=== PATIENT | female | born 1935 | race Caucasian/White ===

== ENCOUNTER 2017-01-22 18:30 | Inpatient (IN) | payer MEDICARE, BC ==
--- NOTE | ~2017-01-22 | HP ---
History And Physical [id number] [place]. [address] NAME: MARIANO ELLIOTT : 37 STATUS : ADM IN [facility]#: [id number] AGE: 81 ADM/REG DATE : 01/23/17 MR#: [id number] REPORT SERV DATE: 01/23/17 DICTATED BY: PASTORA MAYS DATE: 01/23/17 REPORT STATUS : Draft TRANSCRIBED BY: HAYDEN DATE: 01/23/17 DATE OF ADMISSION: 01/23/2017 HISTORY OF PRESENT ILLNESS: The patient is an 81-year-old female, who presented to the emergency department with complaints of back and chest pain. Onset was in the late afternoon or early evening of 01/22/2017. The patient described a constant discomfort in the chest, radiating to the intrascapular region of the back. No associated dyspnea or nausea. The patient had EKG demonstrating anterolateral ST-segment depression. She was treated with medical therapy with resolution of her chest pain. She reports in the early hours this morning having some recurrent chest pain which was treated with sublingual nitroglycerin, morphine with resolution of pain. The patient currently chest pain free and back pain free. Initial troponin 0.34. Subsequent troponin this morning 14.1. PAST MEDICAL HISTORY: 1. Coronary artery disease. a. Original five-vessel coronary artery bypass grafting in 1994. b. Redo coronary artery bypass grafting, 02/21/2016, with SVG-LAD and SVG- PDA. 2. Valvular heart disease, status post mitral and tricuspid valve repairs with ring annuloplasties to both, 02/21/2016. 3. Paroxysmal atrial fibrillation, status post surgical Maze, 02/21/2016. 4. Chronic systolic congestive heart failure/ischemic cardiomyopathy - ejection fraction 40% by most recent echo, 05/06/2016. 5. Sick sinus syndrome, status post [employer] dual-chamber permanent pacemaker implantation. 6. Hyperlipidemia. 7. Chronic anticoagulation for stroke prophylaxis secondary to paroxysmal atrial fibrillation history. 8. GERD. 9. Anxiety disorder. ALLERGIES: SULFA WITH ANAPHYLAXIS, PRURITUS AND RASH. FAMILY HISTORY: Noncontributory. SOCIAL HISTORY: Denies tobacco, alcohol, or illicit drug use. REVIEW OF SYSTEMS: Negative for all organ systems except per the history of present illness. PHYSICAL EXAMINATION: VITALS: Blood pressure 96/50, pulse 83, respirations 16 and unlabored, saturating 95% on room air. Weight 65 kg. GENERAL: Elderly female, in no acute distress. History And Physical [address] [address] NAME: MARIANO ELLIOTT : 37 STATUS : ADM IN PAT#: [id number] AGE: 81 ADM/REG DATE : 01/23/17 MR#: [id number] REPORT SERV DATE: 01/23/17 DICTATED BY: PASTORA MAYS DATE: 01/23/17 REPORT STATUS : Draft TRANSCRIBED BY: HAYDEN DATE: 01/23/17 CHEST: Well-healed sternotomy scar is noted. The sternum is stable. HEENT: Normal. NECK: Supple, no JVD or bruit, normal carotid upstroke bilaterally, no thyromegaly. LUNGS: Clear to auscultation and percussion. No wheezes, rales or rhonchi. No use of accessory muscles. CARDIOLOGY: Regular rhythm, normal S1, S2, no thrill, no murmur, rubs or gallops, normal PMI. ABDOMEN: Bowel sounds positive, soft, nontender, and nondistended. No masses or aortic bruits. No hepatosplenomegaly or hepatojugular reflux. EXTREMITIES: No edema. Normal pulses. No clubbing or cyanosis. SKIN: Warm and dry, no significant rash. NEUROLOGIC: Alert and oriented x 3. Appropriate mood. EKG: EKG on admission, sinus tachycardia with anterolateral ST-segment depression. EKG this morning, intermittent atrial paced rhythm with premature atrial contractions, significant anterolateral ST depression remains. IMPRESSION: 1. Non-Q-wave myocardial infarction - the patient with recurrent more recent chest pain in the early hours this morning. Nitroglycerin paste added to the patient's medical regimen. Already on intravenous heparin. Based upon continued significant ST depression by EKG, we will plan for cardiac catheterization today. The laborer ammunition assembly will be activated for urgent catheterization. Should the patient develop any recurrent chest pain, we will upgrade to an emergent catheterization with immediate call in. 2. Atrial fibrillation - in sinus rhythm by EKGs - apixaban being held, currently on heparin drip. 3. Hyperlipidemia - continue statin. 4. Permanent pacemaker/sick sinus syndrome - asymptomatic of same. Intermittent atrial pacing noted on EKG. Further plans based upon findings at catheterization. [facility] Stefany Mays M.D. / [id number] CC: Alonzo Arvizu M.D.
[~2017-01-22 18:30] MED LIST: ALTA2.5 PO; ASAB PO; ATV1 PO; C1 PO; C2 PO; CORDARONE PO; DILT-XR240 MG PO; DSS PO; DURICEF PO; ELIQUIS 5 MG TAB5 MG PO; FERROUS SULF325 M1 PO; HEMOCYTE324 MG PO; L20 PO; LAN125 PO; LEXAPRO10 PO; LIPITOR20 PO; LIPITOR40 PO; LOP25 PO; NITROSTAT0.4 MG SL; NORCO1 TA1 PO; PLAVIX PO; PREM625 PO; PRIN5 PO; PROTONIX PO; REFRES1 OPH; REFRESH OPH; REST15 PO; SENTAB PO; T PO; ULTRAM50 PO; ZANTAC150 MG PO; ZESTRIL2.5 MG PO; ZESTRIL5 MG PO; ZETIA PO; ZOCOR20 PO; ZOCOR40 PO
[2017-01-22 20:25] LABS: PARTIAL THROMBO TIME 34.3 SEC (22.5-37.2)
[2017-01-22 20:30] LABS: INTERNATIONAL NORMAL RATI 1.2 UNITS (-)
[2017-01-22 20:33] LABS: PROTIME (NOT ORD) 15.2 SEC (12.0-14.5)
[2017-01-22] MEDS ORDERED: PREM625 PO (20:53)
[2017-01-22] MEDS ORDERED: ELIQUIS 2.5 MG2.5 MG PO (20:54)
[2017-01-22] MEDS ORDERED: TOPXL25 PO (20:55)
[2017-01-22] MEDS ORDERED: TOPXL50 PO (20:55)
[2017-01-22] MEDS ORDERED: RAN500 PO (20:56)
[2017-01-22] MEDS ORDERED: TAGAMET 200 MG200 MG PO (20:56)
[2017-01-22] MEDS ORDERED: REM15 PO (20:57)
[2017-01-22 21:06] LABS: BASOPHILS 0.2 %; BASOPHILS ABSOLUTE 0.02 10/3/uL (0.0-0.16); EOSINOPHILS 2.4 %; EOSINOPHILS ABSOLUTE 0.23 10/3/uL (0.0-0.53); IMMATURE GRANULOCYTES 0.2 %; IMMATURE GRANULOCYTES ABSOLUTE 0.02 10/3/uL (0.0-0.11); LYMPHOCYTES 18.9 %; LYMPHOCYTES ABSOLUTE 1.78 10/3/uL (0.67-4.30); MEAN PLATELET VOLUME 10.7 fL (9.2-13.0); MONOCYTES 6.5 %; MONOCYTES ABSOLUTE 0.61 10/3/uL (0.21-1.20); NEUTROPHILS 71.8 %; NEUTROPHILS ABSOLUTE 6.77 10/3/uL (2.02-8.40); PLATELET COUNT 224 10/3/uL (150-400); RBC DISTRIBUTION WIDTH 14.7 % (12.0-16.0); WHITE BLOOD CELLS 9.4 10/3/uL (4.5-10.5)
[2017-01-22 21:07] LABS: ER CBC TAT 1 Hrs 01 Mins; HEMATOCRIT 38.7 % (36.0-48.0); HEMOGLOBIN 12.8 g/dL (12.0-16.0); MANUAL DIFF NO %; MEAN CORPUS HGB CONC 33.1 g/dL (32.0-36.0); MEAN CORPUSCULAR HEMOGLOB 30.5 pg (26.0-34.0); MEAN CORPUSCULAR VOLUME 92.1 fL (80-100)
[2017-01-22 21:25] LABS: BUN (BLOOD UREA NITROGEN) 22 MG/DL (6-23); CALCIUM, SERUM 9.4 MG/DL (8.5-10.4); CHLORIDE, SERUM 107 MMOL/L (96-112); CO2 (CARBON DIOXIDE) 26 MMOL/L (24-34); CREATININE 1.38 MG/DL (0.55-1.02); GFR AFRICAN AMERICAN 42 ML/MIN (>=60); GFR NON AFRICAN AMERICAN 36 ML/MIN (>=60); GLUCOSE, SERUM 108 MG/DL (60-99); POTASSIUM, SERUM 4.5 MMOL/L (3.5-5.3); SODIUM, SERUM 141 MMOL/L (135-148)
[2017-01-22 21:26] LABS: CHEST PAIN PROFILE TAT 0 Hrs 30 Mins; TROPONIN I 0.34 NG/ML (<0.05)
[2017-01-23 07:31] LABS: CHOL/HDL RATIO(NOT ORDER) 3.4 (0-5)
[2017-01-23 07:32] LABS: TROPONIN I 14.1 NG/ML (<0.05)
[2017-01-23 15:10] LABS: CK-MB 37.7 NG/ML
[2017-01-23 15:12] LABS: CKMB INDEX (NOT ORD) 8.7
[2017-01-23 22:43] LABS: CK-MB 26.7 NG/ML
[2017-01-23 22:44] LABS: CKMB INDEX (NOT ORD) 6.6
[2017-01-24 06:24] LABS: BASOPHILS 0.5 %; BASOPHILS ABSOLUTE 0.03 10/3/uL (0.0-0.16); EOSINOPHILS 5.6 %; EOSINOPHILS ABSOLUTE 0.34 10/3/uL (0.0-0.53); IMMATURE GRANULOCYTES 0.2 %; IMMATURE GRANULOCYTES ABSOLUTE 0.01 10/3/uL (0.0-0.11); LYMPHOCYTES 18.8 %; LYMPHOCYTES ABSOLUTE 1.14 10/3/uL (0.67-4.30); MEAN CORPUS HGB CONC 33.1 g/dL (32.0-36.0); MEAN CORPUSCULAR VOLUME 93.7 fL (80-100); MEAN PLATELET VOLUME 10.5 fL (9.2-13.0); MONOCYTES 10.5 %; MONOCYTES ABSOLUTE 0.64 10/3/uL (0.21-1.20); NEUTROPHILS 64.4 %; NEUTROPHILS ABSOLUTE 3.91 10/3/uL (2.02-8.40); PLATELET COUNT 164 10/3/uL (150-400); WHITE BLOOD CELLS 6.1 10/3/uL (4.5-10.5)
[2017-01-24 06:26] LABS: HEMATOCRIT 29.9 % (36.0-48.0); HEMOGLOBIN 9.9 g/dL (12.0-16.0); RED CELL COUNT 3.19 10/6/uL (4.0-5.6)
[2017-01-24 06:27] LABS: MANUAL DIFF NO %
[2017-01-24 06:40] LABS: BUN (BLOOD UREA NITROGEN) 20 MG/DL (6-23); CALCIUM, SERUM 8.3 MG/DL (8.5-10.4); CHLORIDE, SERUM 110 MMOL/L (96-112); CHOL/HDL RATIO(NOT ORDER) 3.4 (0-5); CHOLESTEROL 129 MG/DL (< 200); CK-MB 12.4 NG/ML; CKMB INDEX (NOT ORD) 5.1; CO2 (CARBON DIOXIDE) 27 MMOL/L (24-34); CPK 242 U/L (0-200); CREATININE 1.21 MG/DL (0.55-1.02); GFR AFRICAN AMERICAN 49 ML/MIN (>=60); GFR NON AFRICAN AMERICAN 42 ML/MIN (>=60); GLUCOSE, SERUM 99 MG/DL (60-99); HDL CHOLESTEROL 38 MG/DL (> 49); LDL CHOLESTEROL 64 MG/DL (< 130); NON-HDL CHOLESTEROL 91 MG/DL (< 160); POTASSIUM, SERUM 4.2 MMOL/L (3.5-5.3); SODIUM, SERUM 140 MMOL/L (135-148); TRIGLYCERIDE 138 MG/DL (< 150); TROPONIN I 7.84 NG/ML (<0.05)
[2017-01-24] MEDS ORDERED: ASAB PO (12:43)
[2017-01-24] MEDS ORDERED: PLAVIX PO (12:44)
== END 2017-01-24 13:45 | disposition home or self-care (01) | DRG 247 ==
LOC: ER 18:30 → 6NO 01-23 01:27 → CCU 01-23 11:44
PROVIDERS: Emergency Medicine; Internal Medicine Cardiovascular Disease; Nurse Practitioner Family
PROC: 027034Z Dilation of Coronary Artery, One Artery with Drug-eluting Intraluminal Device, Percutaneous Approach (ICD-10-PCS; principal; 2017-01-23)
PROC: 4A023N7 Measurement of Cardiac Sampling and Pressure, Left Heart, Percutaneous Approach (ICD-10-PCS; 2017-01-23)
PROC: B2111ZZ Fluoroscopy of Multiple Coronary Arteries using Low Osmolar Contrast (ICD-10-PCS; 2017-01-23)
PROC: B2131ZZ Fluoroscopy of Multiple Coronary Artery Bypass Grafts using Low Osmolar Contrast (ICD-10-PCS; 2017-01-23)
PROC: B2181ZZ Fluoroscopy of Left Internal Mammary Bypass Graft using Low Osmolar Contrast (ICD-10-PCS; 2017-01-23)
DX: I21.4 Non-ST elevation (NSTEMI) myocardial infarction (principal); I50.22 Chronic systolic (congestive) heart failure; I49.5 Sick sinus syndrome; I25.10 Atherosclerotic heart disease of native coronary artery without angina pectoris; E78.5 Hyperlipidemia, unspecified; I25.5 Ischemic cardiomyopathy; I48.0 Paroxysmal atrial fibrillation; K21.9 Gastro-esophageal reflux disease without esophagitis; F41.9 Anxiety disorder, unspecified; E78.00 Pure hypercholesterolemia, unspecified; I25.2 Old myocardial infarction; Z95.0 Presence of cardiac pacemaker; Z88.2 Allergy status to sulfonamides
CPT/HCPCS: 71010; 80048; 80061; 82550; 82553; 83735; 84460; 84484; 85025; 85347; 85610; 85730; 93005; 93459; 96374; 99152; 99153; 99291; A9270-GY; C1725; C1769; C1874; C1887; C8929; C9604; J0583; J2250; J3010; Q9957; Q9967